=== PATIENT | female | born 1945 | race Caucasian/White ===

== ENCOUNTER 2017-01-19 06:59 | Day surgery (SDC) | payer BC ==
[~2017-01-19] VITALS: Ht 157.5 cm; Wt 56.7 kg
[~2017-01-19 06:59] MED LIST: CEPHALEXIN500 M1 PO; NO HOME MEDICATIONS
[2017-01-19] MEDS ORDERED: WELLBUTRIN SR150 M1 PO (07:24)
[2017-01-19] MEDS ORDERED: HCTZ12.5TAB PO (07:24)
[2017-01-19] MEDS ORDERED: LIPITOR 40MG TA40 MG PO (07:25)
[2017-01-19 07:46] VITALS: BP 138/81; PULSE 73; TEMP 98.7
[2017-01-19 09:00] VITALS: BP 117/72; PULSE 69; TEMP 98.7
[2017-01-19 09:15] VITALS: BP 121/68; PULSE 67
[2017-01-19 09:30] VITALS: BP 128/74; PULSE 68
== END 2017-01-19 09:40 | disposition home or self-care (01) ==
LOC: SDCO 06:59
DX: Z12.11 Encounter for screening for malignant neoplasm of colon (principal); I25.10 Atherosclerotic heart disease of native coronary artery without angina pectoris; I10 Essential (primary) hypertension; E78.00 Pure hypercholesterolemia, unspecified; Z95.5 Presence of coronary angioplasty implant and graft
CPT/HCPCS: OP; J2704; J7030